=== PATIENT | male | born 1950 | race Caucasian/White ===

== ENCOUNTER 2019-05-09 14:23 | Emergency (ER) | payer OTHER ==
[~2019-05-09] VITALS: Ht 172.7 cm; Wt 83.2 kg
[~2019-05-09 14:23] MED LIST: GLIP5TAB13 PO; LISI-313 PO; METF100010 PO
[2019-05-09 14:26] VITALS: Ht 172.7 cm; Wt 83.2 kg
[2019-05-09] MEDS ORDERED: SOD CHLORIDE 0.9% 830 ML IV ONE (15:00)
[2019-05-09] MEDS ORDERED: ACCU-CHEK XX ONE (16:00)
[2019-05-09] MEDS ORDERED: INSULIN LISPRO 100 UNIT/ML VIAL SC ONE (16:00)
[2019-05-09 17:11] VITALS: BP 118/68; PULSE 84; RESP 20
== END 2019-05-09 17:00 | disposition home or self-care (01) ==
LOC: E/R 14:23
DX: E11.65 Type 2 diabetes mellitus with hyperglycemia (principal)
CPT/HCPCS: 36415; 80048; 82962; 83735; 84100; 85025; 96372; 99284; J1815